=== PATIENT | female | born 1965 | race Two or more races ===

== ENCOUNTER 2025-04-09 12:59 | Emergency (ER) | payer BC ==
[~2025-04-09] VITALS: Ht 160 cm; Wt 83.9 kg
[2025-04-09 13:18] VITALS: BP 127/81; TEMP 98.3
[2025-04-09 15:24] VITALS: O2SAT 98
== END 2025-04-09 15:24 | disposition home or self-care (01) ==
LOC: ER 13:20
DX: H61.23 Impacted cerumen, bilateral (principal); I10 Essential (primary) hypertension